=== PATIENT | male | born 1960 | race Caucasian/White ===

== ENCOUNTER 2019-09-15 17:42 | Inpatient (IN) | payer OTHER ==
[~2019-09-15] VITALS: Ht 177.8 cm; Wt 86.1 kg
[2019-09-15] MEDS ORDERED: HYDROmorphone 2 MG/ML SYRINGE IVP ONE ×3 (18:00→22:15)
[2019-09-15] MEDS ORDERED: ONDANSETRON HCL 4 MG/2 ML VIAL IVP ONE (18:00)
[2019-09-15 18:16] LABS: BASOPHILS % (AUTO) 0.5 % (0.0-2.0); EOSINOPHILS % (AUTO) 0.5 % (1.0-6.0); HEMATOCRIT 51.1 % (41-53); HEMOGLOBIN 16.7 g/dL (13.5-17.5); LYMPHOCYTES # (AUTO) 2.5 K/uL (1.0-4.8); LYMPHOCYTES % (AUTO) 17.3 % (22.0-44.0); MEAN CORPUSCULAR HEMOGLOBIN 29.7 pg (26.0-34.0); MEAN CORPUSCULAR HGB CONC 32.6 G/dL (31.0-37.0); MEAN CORPUSCULAR VOLUME 91 fL (80-100); MONOCYTES # (AUTO) 0.4 K/uL (0.1-1.0); MONOCYTES % (AUTO) 2.9 % (2.0-9.0); NEUTROPHILS # (AUTO) 11.4 K/uL (1.8-7.7); NEUTROPHILS % (AUTO) 78.8 % (40.0-70.0); PLATELET COUNT (AUTO) 312 K/uL (150-450); RED BLOOD CELL COUNT(AUTO) 5.62 MIL/uL (4.50-5.90)
[2019-09-15 18:17] LABS: ANION GAP 6 mmol/L (8-16); CALCIUM, TOTAL 8.9 mg/dL (8.8-10.5); CARBON DIOXIDE 28 mmol/L (22-29); CHLORIDE 108 mmol/L (98-107); CREATININE 0.93 mg/dL (0.60-1.30); GLOMERULAR FILTR. RATE CALC > 60 mL/min (>60); GLUCOSE,RANDOM 186 mg/dL (70-110); POTASSIUM 3.4 mmol/L (3.5-5.1); SODIUM SERUM 142 mmol/L (136-145); UREA NITROGEN, BLOOD 14 mg/dL (7-18)
[2019-09-15 18:21] LABS: PROTHROMBIN TIME 10.7 SEC (9.4-11.6)
[2019-09-15 18:42] LABS: ALANINE AMINOTRANSFERASE 31 U/L (12-78); ALBUMIN 3.7 g/dL (3.4-5.0); ALKALINE PHOSPHATASE 53 U/L (46-116); ASPARTATE AMINOTRANSFERASE 18 U/L (15-37); BILIRUBIN,TOTAL 0.7 mg/dL (0.1-1.0); CREATINE KINASE, TOTAL ONLY 153 U/L (39-308)
[2019-09-15] MEDS ORDERED: SODIUM CHLORIDE 0.9% 100 ML ONE (18:46)
[2019-09-15] MEDS ORDERED: IOVERSOL 320 MG/ML 100 ML VIAL ONE (18:46)
[2019-09-15] MEDS ORDERED: PIPERACILLIN/TAZO 3.375 GM/D5W 50 ML IV ONE (20:30)
[2019-09-15] MEDS ORDERED: ONDANSETRON HCL 4 MG/2 ML VIAL IVP PRN ×2 (21:00→22:45)
[2019-09-15] MEDS ORDERED: 0.9% SODIUM CHLORIDE 10 ML SYRINGE IVP PRN (21:00)
[2019-09-15] MEDS ORDERED: ACETAMINOPHEN 325 MG TABLET PO PRN (21:00)
[2019-09-15] MEDS ORDERED: SODIUM CHLORIDE 0.9% 1,000 ML ONE (21:33)
[2019-09-15] MEDS ORDERED: SODIUM CHLORIDE 0.9% 1,000 ML IV ONE (21:45)
[2019-09-15] MEDS ORDERED: DEXTROSE 5%-0.45% SODIUM CHL 1,000 ML IV ONE (22:45)
[2019-09-15] MEDS ORDERED: MAGNESIUM HYDROXIDE SUSPENSION 30 ML UDCUP PO PRN (22:45)
[2019-09-15] MEDS ORDERED: ZOLPIDEM TARTRATE 5 MG TABLET PO PRN (22:45)
[2019-09-15] MEDS ORDERED: MORPHINE SULFATE 2 MG/ML SYRINGE IVP PRN (22:45)
[2019-09-15] MEDS ORDERED: BISACODYL 10 MG RECTAL RECTAL SUPPOSITORY PR PRN (22:45)
[2019-09-15] MEDS ORDERED: SUGAMMADEX SODIUM 200 MG/2 ML VIAL IVP ONE (23:50)
[2019-09-15] MEDS ORDERED: RINGERS SOLUTION,LACTATED 2,000 ML IV ONE (23:51)
[2019-09-16] MEDS ORDERED: MEPERIDINE-PF 25 MG/ML VIAL IVP PRN
[2019-09-16] MEDS ORDERED: FentaNYL CITRATE-PF 100 MCG/2 ML VIAL IVP PRN
[2019-09-16] MEDS ORDERED: LIDOCAINE/PF 1% 30 ML VIAL ONE (00:21)
[2019-09-16] MEDS ORDERED: BUPIVACAINE HCL/PF 0.25% 30 ML VIAL ONE (00:21)
[2019-09-16] MEDS ORDERED: SODIUM CHLORIDE 0.9% 100 ML ONE (00:23)
[2019-09-16] MEDS ORDERED: PANTOPRAZOLE SODIUM 40 MG/VIAL IVP ONE (00:30)
[2019-09-16] MEDS ORDERED: SUGAMMADEX SODIUM 200 MG/2 ML VIAL IVP ONE (00:34)
[2019-09-16] MEDS ORDERED: CeFAZolin 2 GM/DEXTROSE 50 ML IV SCH (00:45)
[2019-09-16] MEDS ORDERED: HYDROmorphone 2 MG/ML SYRINGE IVP PRN ×2 (00:45)
[2019-09-16] MEDS ORDERED: ONDANSETRON HCL 4 MG/2 ML VIAL IM PRN (00:45)
[2019-09-16] MEDS ORDERED: HYDROmorphone 2 MG/ML SYRINGE ONE (01:32)
[2019-09-16 02:36] VITALS: BP 133/78
[2019-09-16] MEDS: PIPERACILLIN/TAZO 3.375 GM/D5W 50 ML IV SCH ×3 (02:48→20:00)
[2019-09-16] MEDS: DEXTROSE 5%-LACTATED RINGERS 1,000 ML IV SCH ×2 (02:49→13:56)
[2019-09-16] MEDS ORDERED: SODIUM CHLORIDE 0.9% 250 ML IV ONE (03:07)
[2019-09-16 06:54] LABS: HEMATOCRIT 47.1 % (41-53); HEMOGLOBIN 15.7 g/dL (13.5-17.5); MEAN CORPUSCULAR HEMOGLOBIN 30.5 pg (26.0-34.0); MEAN CORPUSCULAR HGB CONC 33.4 G/dL (31.0-37.0); MEAN CORPUSCULAR VOLUME 91 fL (80-100); PLATELET COUNT (AUTO) 257 K/uL (150-450); RED BLOOD CELL COUNT(AUTO) 5.15 MIL/uL (4.50-5.90); RED CELL DISTRIBUTION WIDTH 14.1 % (11.5-14.5)
[2019-09-16 07:08] LABS: ANION GAP 5 mmol/L (8-16); CALCIUM, TOTAL 7.7 mg/dL (8.8-10.5); CARBON DIOXIDE 28 mmol/L (22-29); CHLORIDE 107 mmol/L (98-107); GLOMERULAR FILTR. RATE CALC > 60 mL/min (>60); GLUCOSE,RANDOM 166 mg/dL (70-110); SODIUM SERUM 140 mmol/L (136-145); UREA NITROGEN, BLOOD 11 mg/dL (7-18)
[2019-09-16 08:25] VITALS: BP 108/68
[2019-09-16] MEDS: DOCUSATE SODIUM 100 MG CAPSULE PO SCH ×2 (09:00→20:03)
[2019-09-16] MEDS ORDERED: PANTOPRAZOLE SODIUM 40 MG/VIAL IVP SCH (09:00)
[2019-09-16] MEDS: OXYGEN THERAPY IH SCH ×2 (09:06→20:14)
[2019-09-16] MEDS: HEPARIN SODIUM,PORCINE 5,000 UNITS/ML VIAL SQ SCH ×3 (09:14→16:05)
[2019-09-16] MEDS: PANTOPRAZOLE SODIUM 40 MG/VIAL IVP SCH ×2 (09:15→20:14)
[2019-09-16 09:22] LABS: BAND NEUTROPHILS % (MANUAL) 33 % (0-5); LYMPHOCYTES % (MANUAL) 5 % (22-44); MONOCYTES % (MANUAL) 4 % (2-9); REACTIVE LYMPHOCYTES 5 % (0-0); SEGMENTED NEUTROPHILS % 53 % (40-70)
[2019-09-16] MEDS: MORPHINE SULFATE 2 MG/ML SYRINGE IVP PRN ×3 (09:35→20:14)
[2019-09-16 11:01] VITALS: BP 108/70
[2019-09-16 15:42] VITALS: BP 103/74
[2019-09-16 20:25] VITALS: BP 108/73
[2019-09-17] VITALS (7 sets, daily range): BP systolic 107–135; BP diastolic 65–81
[2019-09-17] MEDS: HEPARIN SODIUM,PORCINE 5,000 UNITS/ML VIAL SQ SCH ×4 (00:39→23:04)
[2019-09-17] MEDS: MORPHINE SULFATE 2 MG/ML SYRINGE IVP PRN ×2 (03:04→08:46)
[2019-09-17] MEDS: DEXTROSE 5%-LACTATED RINGERS 1,000 ML IV SCH ×3 (03:23→17:56)
[2019-09-17] MEDS: PIPERACILLIN/TAZO 3.375 GM/D5W 50 ML IV SCH ×4 (03:24→20:18)
[2019-09-17] MEDS ORDERED: PROPOFOL 1% 20 ML VIAL IVP ONE (05:29)
[2019-09-17] MEDS ORDERED: SUCCINYLCHOLINE CHLORIDE 20 MG/ML 10 ML VIAL IVP ONE (05:29)
[2019-09-17] MEDS ORDERED: LIDOCAINE/PF 2% 5 ML VIAL IM ONE (05:29)
[2019-09-17] MEDS ORDERED: ROCURONIUM BROMIDE 10 MG/ML 5 ML VIAL IVP ONE (05:29)
[2019-09-17] MEDS ORDERED: DEXAMETHASONE SOD PHOS 4 MG/ML VIAL IVP ONE (05:29)
[2019-09-17] MEDS ORDERED: MIDAZOLAM HCL 2 MG/2 ML VIAL IVP ONE (05:29)
[2019-09-17] MEDS ORDERED: FentaNYL CITRATE-PF 250 MCG/5 ML VIAL IVP ONE (05:29)
[2019-09-17] MEDS ORDERED: 0.9% SODIUM CHLORIDE 10 ML VIAL IVP ONE (05:29)
[2019-09-17] MEDS ORDERED: ONDANSETRON HCL 4 MG/2 ML VIAL IVP ONE (05:29)
[2019-09-17] MEDS ORDERED: HYDROmorphone 2 MG/ML SYRINGE IVP ONE (05:29)
[2019-09-17 07:01] LABS: BASOPHILS % (AUTO) 0.1 % (0.0-2.0); EOSINOPHILS % (AUTO) 0.1 % (1.0-6.0); HEMATOCRIT 44.5 % (41-53); HEMOGLOBIN 14.5 g/dL (13.5-17.5); LYMPHOCYTES % (AUTO) 7.1 % (22.0-44.0); MEAN CORPUSCULAR HEMOGLOBIN 29.8 pg (26.0-34.0); MEAN CORPUSCULAR HGB CONC 32.7 G/dL (31.0-37.0); MEAN CORPUSCULAR VOLUME 91 fL (80-100); MONOCYTES # (AUTO) 0.8 K/uL (0.1-1.0); MONOCYTES % (AUTO) 5.9 % (2.0-9.0); PLATELET COUNT (AUTO) 243 K/uL (150-450); RED BLOOD CELL COUNT(AUTO) 4.88 MIL/uL (4.50-5.90); RED CELL DISTRIBUTION WIDTH 14.4 % (11.5-14.5)
[2019-09-17 07:07] LABS: NEUTROPHILS % (AUTO) 86.8 % (40.0-70.0)
[2019-09-17 07:29] LABS: ANION GAP 5 mmol/L (8-16); CALCIUM, TOTAL 8.3 mg/dL (8.8-10.5); CARBON DIOXIDE 30 mmol/L (22-29); CHLORIDE 103 mmol/L (98-107); CREATININE 0.95 mg/dL (0.60-1.30); GLOMERULAR FILTR. RATE CALC > 60 mL/min (>60); GLUCOSE,RANDOM 139 mg/dL (70-110); POTASSIUM 3.3 mmol/L (3.5-5.1); SODIUM SERUM 138 mmol/L (136-145); UREA NITROGEN, BLOOD 12 mg/dL (7-18)
[2019-09-17] MEDS: PANTOPRAZOLE SODIUM 40 MG/VIAL IVP SCH ×2 (07:59→20:12)
[2019-09-17] MEDS: OXYGEN THERAPY IH SCH ×2 (07:59→20:18)
[2019-09-17] MEDS: DOCUSATE SODIUM 100 MG CAPSULE PO SCH ×2 (08:41→20:12)
[2019-09-17] MEDS ORDERED: POTASSIUM CHL 10 MEQ/WATER 50 ML IV PRN (09:15)
[2019-09-17] MEDS: POTASSIUM CHL 10 MEQ/WATER 50 ML IV PRN ×3 (10:26→15:35)
[2019-09-17] MEDS: MORPHINE SULFATE 4 MG/ML SYRINGE IVP PRN ×2 (11:50→20:17)
[2019-09-18] MEDS: MORPHINE SULFATE 4 MG/ML SYRINGE IVP PRN ×3 (01:08→14:00)
[2019-09-18] MEDS: PIPERACILLIN/TAZO 3.375 GM/D5W 50 ML IV SCH ×4 (02:12→20:21)
[2019-09-18] MEDS: DEXTROSE 5%-LACTATED RINGERS 1,000 ML IV SCH ×2 (03:01→14:00)
[2019-09-18 04:11] VITALS: BP 111/73
[2019-09-18 06:36] LABS: BASOPHILS % (AUTO) 0.4 % (0.0-2.0); HEMATOCRIT 42.9 % (41-53); HEMOGLOBIN 14.6 g/dL (13.5-17.5); LYMPHOCYTES # (AUTO) 0.6 K/uL (1.0-4.8); LYMPHOCYTES % (AUTO) 6.2 % (22.0-44.0); MEAN CORPUSCULAR HEMOGLOBIN 30.8 pg (26.0-34.0); MEAN CORPUSCULAR VOLUME 91 fL (80-100); MONOCYTES # (AUTO) 0.5 K/uL (0.1-1.0); MONOCYTES % (AUTO) 4.9 % (2.0-9.0); NEUTROPHILS # (AUTO) 8.3 K/uL (1.8-7.7); PLATELET COUNT (AUTO) 229 K/uL (150-450); RED BLOOD CELL COUNT(AUTO) 4.73 MIL/uL (4.50-5.90); RED CELL DISTRIBUTION WIDTH 14.3 % (11.5-14.5)
[2019-09-18 06:51] LABS: ANION GAP 4 mmol/L (8-16); CALCIUM, TOTAL 8.7 mg/dL (8.8-10.5); CARBON DIOXIDE 31 mmol/L (22-29); CHLORIDE 103 mmol/L (98-107); CREATININE 1.07 mg/dL (0.60-1.30); GLOMERULAR FILTR. RATE CALC > 60 mL/min (>60); GLUCOSE,RANDOM 151 mg/dL (70-110); POTASSIUM 3.6 mmol/L (3.5-5.1); SODIUM SERUM 138 mmol/L (136-145); UREA NITROGEN, BLOOD 9 mg/dL (7-18)
[2019-09-18 06:56] LABS: NEUTROPHILS % (AUTO) 87.5 % (40.0-70.0)
[2019-09-18 08:00] VITALS: BP 115/75
[2019-09-18] MEDS: DOCUSATE SODIUM 100 MG CAPSULE PO SCH ×2 (08:09→20:21)
[2019-09-18] MEDS: PANTOPRAZOLE SODIUM 40 MG/VIAL IVP SCH ×2 (08:23→20:21)
[2019-09-18] MEDS: HEPARIN SODIUM,PORCINE 5,000 UNITS/ML VIAL SQ SCH ×2 (08:24→16:02)
[2019-09-18] MEDS: POTASSIUM CHL 10 MEQ/WATER 50 ML IV PRN (11:57)
[2019-09-18 12:00] VITALS: BP 127/77
[2019-09-18] MEDS ORDERED: POTASSIUM CHLORIDE 10% 40 MEQ/30 ML LIQUID UDCUP PO SCH (13:15)
[2019-09-18 15:39] VITALS: BP 148/67
[2019-09-18] MEDS: ACETAMINOPHEN 325 MG TABLET PO PRN ×2 (16:03→20:21)
[2019-09-18 20:03] VITALS: BP 113/66
[2019-09-18] MEDS: OXYGEN THERAPY IH SCH (20:22)
[2019-09-18 23:56] VITALS: BP 123/76
[2019-09-19] MEDS: HEPARIN SODIUM,PORCINE 5,000 UNITS/ML VIAL SQ SCH ×4 (00:40→23:45)
[2019-09-19] MEDS: PIPERACILLIN/TAZO 3.375 GM/D5W 50 ML IV SCH ×4 (01:19→20:36)
[2019-09-19] MEDS: ACETAMINOPHEN 325 MG TABLET PO PRN ×2 (02:12→08:11)
[2019-09-19 04:25] VITALS: BP 116/76
[2019-09-19 07:10] VITALS: BP 124/68
[2019-09-19] MEDS: OXYGEN THERAPY IH SCH (08:00)
[2019-09-19] MEDS: PANTOPRAZOLE SODIUM 40 MG/VIAL IVP SCH ×2 (08:11→20:36)
[2019-09-19] MEDS: DOCUSATE SODIUM 100 MG CAPSULE PO SCH ×2 (08:11→20:36)
[2019-09-19 11:03] VITALS: BP 121/70
[2019-09-19] MEDS: POTASSIUM CHLORIDE 20 MEQ ER TABLET PO PRN (13:00)
[2019-09-19] MEDS ORDERED: ACETAMINOPHEN 650 MG/20.3 ML SOLUTION UDCUP PO ONE (14:45)
[2019-09-19 15:17] VITALS: BP 120/76
[2019-09-19] MEDS ORDERED: SODIUM CHLORIDE 0.9% 500 ML IV ONE (20:30)
[2019-09-19 23:49] VITALS: BP 112/76
[2019-09-20] MEDS: PIPERACILLIN/TAZO 3.375 GM/D5W 50 ML IV SCH ×5 (00:59→20:16)
[2019-09-20 04:00] VITALS: BP 107/67
[2019-09-20 07:22] LABS: H. PYLORI ANTIBODY IGG 5.18 (0.00-0.79)
[2019-09-20] MEDS: OXYGEN THERAPY IH SCH (07:25)
[2019-09-20 08:18] VITALS: BP 110/75
[2019-09-20] MEDS: PANTOPRAZOLE SODIUM 40 MG/VIAL IVP SCH (08:24)
[2019-09-20] MEDS: HEPARIN SODIUM,PORCINE 5,000 UNITS/ML VIAL SQ SCH ×2 (08:24→16:07)
[2019-09-20] MEDS: DOCUSATE SODIUM 100 MG CAPSULE PO SCH ×3 (08:24→20:21)
[2019-09-20] MEDS: PANTOPRAZOLE SODIUM 40 MG DR TABLET PO SCH (10:30)
[2019-09-20 11:08] VITALS: BP 143/63
[2019-09-20 15:22] VITALS: BP 103/63
[2019-09-20] MEDS: ACETAMINOPHEN 325 MG TABLET PO PRN ×2 (16:06→20:17)
[2019-09-20 19:58] VITALS: BP 105/64
[2019-09-20 21:49] LABS: H. PYLORI ANTIBODY IGA <9.0 units (0.0-8.9)
[2019-09-21] MEDS: HEPARIN SODIUM,PORCINE 5,000 UNITS/ML VIAL SQ SCH ×3 (00:18→16:46)
[2019-09-21] MEDS: PIPERACILLIN/TAZO 3.375 GM/D5W 50 ML IV SCH ×4 (02:10→20:47)
[2019-09-21 05:22] VITALS: BP 109/54
[2019-09-21] MEDS: OXYGEN THERAPY IH SCH ×2 (08:00→20:00)
[2019-09-21 08:01] VITALS: BP 108/73
[2019-09-21] MEDS: ACETAMINOPHEN 325 MG TABLET PO PRN ×2 (08:05→20:47)
[2019-09-21] MEDS: PANTOPRAZOLE SODIUM 40 MG DR TABLET PO SCH (08:05)
[2019-09-21] MEDS: DOCUSATE SODIUM 100 MG CAPSULE PO SCH ×2 (08:07→21:00)
[2019-09-21 13:00] VITALS: BP 106/69
[2019-09-21 13:42] LABS: H. PYLORI ANTIBODY IGM <9.0 units (0.0-8.9)
[2019-09-21 16:07] VITALS: BP 103/68
[2019-09-21 19:45] VITALS: BP 108/74
[2019-09-21] MEDS ORDERED: SODIUM CHLORIDE 0.9% 500 ML IV ONE (23:49)
[2019-09-21 23:51] VITALS: BP 106/73
[2019-09-22] MEDS: HEPARIN SODIUM,PORCINE 5,000 UNITS/ML VIAL SQ SCH ×2 (00:29→08:29)
[2019-09-22] MEDS: PIPERACILLIN/TAZO 3.375 GM/D5W 50 ML IV SCH ×2 (02:42→08:29)
[2019-09-22 04:00] VITALS: BP 108/72
[2019-09-22 06:19] LABS: BAND NEUTROPHILS % (MANUAL) 0 % (0-5)
[2019-09-22 06:43] LABS: HEMATOCRIT 45.2 % (41-53); MEAN CORPUSCULAR HEMOGLOBIN 31.7 pg (26.0-34.0); MEAN CORPUSCULAR HGB CONC 35.3 G/dL (31.0-37.0); MEAN CORPUSCULAR VOLUME 90 fL (80-100); PLATELET COUNT (AUTO) 355 K/uL (150-450); RED BLOOD CELL COUNT(AUTO) 5.04 MIL/uL (4.50-5.90); RED CELL DISTRIBUTION WIDTH 13.9 % (11.5-14.5)
[2019-09-22 06:47] LABS: ALANINE AMINOTRANSFERASE 71 U/L (12-78); ALBUMIN 2.3 g/dL (3.4-5.0); ALKALINE PHOSPHATASE 47 U/L (46-116); ANION GAP 6 mmol/L (8-16); ASPARTATE AMINOTRANSFERASE 55 U/L (15-37); BILIRUBIN,TOTAL 0.8 mg/dL (0.1-1.0); CALCIUM, TOTAL 8.5 mg/dL (8.8-10.5); CARBON DIOXIDE 28 mmol/L (22-29); CHLORIDE 102 mmol/L (98-107); CREATININE 0.97 mg/dL (0.60-1.30); GLOMERULAR FILTR. RATE CALC > 60 mL/min (>60); GLUCOSE,RANDOM 92 mg/dL (70-110); POTASSIUM 3.3 mmol/L (3.5-5.1); SODIUM SERUM 136 mmol/L (136-145); TOTAL PROTEIN, SERUM 6.4 g/dL (6.4-8.2); UREA NITROGEN, BLOOD 12 mg/dL (7-18)
[2019-09-22 07:40] VITALS: BP 123/76
[2019-09-22] MEDS: OXYGEN THERAPY IH SCH (08:00)
[2019-09-22] MEDS ORDERED: AMOX500C2 PO (08:19)
[2019-09-22] MEDS ORDERED: OMEP20 PO (08:21)
[2019-09-22] MEDS ORDERED: CLAR250T39 PO (08:21)
[2019-09-22 08:25] LABS: EOSINOPHILS % (MANUAL) 2 % (1-6); LYMPHOCYTES % (MANUAL) 25 % (22-44); MONOCYTES % (MANUAL) 3 % (2-9); SEGMENTED NEUTROPHILS % 70 % (40-70)
[2019-09-22] MEDS: PANTOPRAZOLE SODIUM 40 MG DR TABLET PO SCH (08:28)
[2019-09-22] MEDS: POTASSIUM CHLORIDE 20 MEQ ER TABLET PO PRN (08:28)
[2019-09-22] MEDS: DOCUSATE SODIUM 100 MG CAPSULE PO SCH (08:29)
[2019-09-22 11:34] VITALS: BP 113/77
== END 2019-09-22 13:41 | disposition home or self-care (01) | DRG 326 ==
LOC: EMS 17:44 → 5S 21:30 → 4E 09-19 17:26 → 6N 09-21 17:58
PROVIDERS: ADMIT Internal Medicine; ATTEND Internal Medicine
PROC: 0DU707Z Supplement Stomach, Pylorus with Autologous Tissue Substitute, Open Approach (ICD-10-PCS; principal; 2019-09-16)
DX: K25.1 Acute gastric ulcer with perforation (principal); K65.9 Peritonitis, unspecified; R65.10 Systemic inflammatory response syndrome (SIRS) of non-infectious origin without acute organ dysfunction; K43.6 Other and unspecified ventral hernia with obstruction, without gangrene; E87.6 Hypokalemia; F17.200 Nicotine dependence, unspecified, uncomplicated; B96.81 Helicobacter pylori [H. pylori] as the cause of diseases classified elsewhere; Z88.6 Allergy status to analgesic agent
CPT/HCPCS: 74177; 76700; 84132; 85007; 86677; 87070; 87205; 88302; 93005; 99291; C9113; G0378; J0330; J0690; J1100; J1170; J1644; J2250; J2270; J2405; J2543; J2704; J3010; J3480; J3490; J7030; J7040; J7050; J7120; 36415-L1; 36415-TC; 71045-TC

== ENCOUNTER 2022-12-16 09:49 | Emergency (ER) | payer OTHER ==
[~2022-12-16] VITALS: Ht 177.8 cm; Wt 93.2 kg
[~2022-12-16 09:49] MED LIST: AMOX500C2 PO; CLAR250T39 PO; OMEP20 PO
[2022-12-16] MEDS ORDERED: ASPI-1444 PO (09:53)
[2022-12-16] MEDS ORDERED: TRAM-559 PO (09:53)
[2022-12-16] MEDS ORDERED: OMEP40CA21 PO (09:53)
[2022-12-16] MEDS ORDERED: ATOR10TA69 PO (09:53)
[2022-12-16] MEDS ORDERED: PIOG30TA70 PO (09:53)
[2022-12-16] MEDS ORDERED: GABA-534 PO (09:53)
[2022-12-16] MEDS ORDERED: NORT25CA3 PO (09:53)
[2022-12-16 10:00] VITALS: TEMP 98.9
[2022-12-16 10:41] LABS: BASOPHILS % (AUTO) 0.5 % (0.0-2.0); EOSINOPHILS % (AUTO) 0.4 % (1.0-6.0); HEMATOCRIT 47.2 % (41-53); LYMPHOCYTES # (AUTO) 1.3 K/uL (1.0-4.8); LYMPHOCYTES % (AUTO) 11.2 % (22.0-44.0); MEAN CORPUSCULAR HEMOGLOBIN 30.8 pg (26.0-34.0); MEAN CORPUSCULAR HGB CONC 33.9 G/dL (31.0-37.0); MEAN CORPUSCULAR VOLUME 91 fL (80-100); MONOCYTES # (AUTO) 0.7 K/uL (0.1-1.0); MONOCYTES % (AUTO) 6.2 % (2.0-9.0); NEUTROPHILS # (AUTO) 9.9 K/uL (1.8-7.7); NEUTROPHILS % (AUTO) 81.7 % (40.0-70.0); PLATELET COUNT (AUTO) 242 K/uL (150-450); RED BLOOD CELL COUNT(AUTO) 5.21 MIL/uL (4.50-5.90); RED CELL DISTRIBUTION WIDTH 13.8 % (11.5-14.5)
[2022-12-16 10:53] LABS: ANION GAP 9 mmol/L (8-16); CALCIUM, TOTAL 9.5 mg/dL (8.8-10.5); CARBON DIOXIDE 28 mmol/L (22-29); CHLORIDE 101 mmol/L (98-107); CREATININE 0.89 mg/dL (0.60-1.30); GLOMERULAR FILTR. RATE CALC > 60 mL/min (>60); GLUCOSE,RANDOM 151 mg/dL (70-110); POTASSIUM 3.4 mmol/L (3.5-5.1); SODIUM SERUM 138 mmol/L (136-145); UREA NITROGEN, BLOOD 9 mg/dL (7-18)
[2022-12-16 11:03] LABS: TROPONIN I-HIGH SENSITIVITY 5 ng/L (<76)
[2022-12-16 11:15] VITALS: BP 139/88; PULSE 86; RESP 20
== END 2022-12-16 11:56 | disposition home or self-care (01) ==
LOC: EMS 09:49
DX: R07.89 Other chest pain (principal); R10.31 Right lower quadrant pain; E11.9 Type 2 diabetes mellitus without complications; F17.210 Nicotine dependence, cigarettes, uncomplicated; Z98.890 Other specified postprocedural states; Z88.5 Allergy status to narcotic agent
CPT/HCPCS: 71045; 80048; 82962; 84484; 85025; 85379; 93005; 99285; 36415-L1; 36415-TC

== ENCOUNTER 2023-04-19 08:25 | Emergency (ER) | payer OTHER ==
[~2023-04-19] VITALS: Ht 170.2 cm; Wt 90.9 kg
[~2023-04-19 08:25] MED LIST changes: -AMOX500C2 PO; +ASPI-1444 PO; +ATOR10TA69 PO; -CLAR250T39 PO; +GABA-534 PO; +NORT25CA3 PO; -OMEP20 PO; +OMEP40CA21 PO; +PIOG30TA70 PO; +TRAM-559 PO
[2023-04-19 08:31] VITALS: TEMP 98.3
[2023-04-19] MEDS ORDERED: IBUP-2070 PO (08:34)
[2023-04-19 09:59] VITALS: BP 124/84; PULSE 80; RESP 16
[2023-04-19] MEDS: HYDROCODONE/ACETAMINOPHEN 5-325 MG TABLET PO ONE (10:07)
[2023-04-19] MEDS: KETOROLAC TROMETHAMINE 60 MG/2 ML VIAL IM ONE (10:08)
[2023-04-19] MEDS ORDERED: IBUP-1492 PO (10:49)
[2023-04-19] MEDS ORDERED: PERCT PO (10:49)
== END 2023-04-19 11:15 | disposition home or self-care (01) ==
LOC: EMS 08:25
DX: S42.211A Unspecified displaced fracture of surgical neck of right humerus, initial encounter for closed fracture (principal); F17.210 Nicotine dependence, cigarettes, uncomplicated; E11.40 Type 2 diabetes mellitus with diabetic neuropathy, unspecified; Z98.890 Other specified postprocedural states; Z88.5 Allergy status to narcotic agent; W19.XXXA Unspecified fall, initial encounter; Y93.89 Activity, other specified; Y92.89 Other specified places as the place of occurrence of the external cause; Y99.8 Other external cause status
CPT/HCPCS: 99283; 82962; 73030; 96372; J1885